=== PATIENT | female | born 1975 | race Caucasian/White ===

== ENCOUNTER 2016-12-15 18:37 | Emergency (ER) | payer BC ==
[~2016-12-15] VITALS: Ht 163.8 cm; Wt 64.1 kg
[~2016-12-15 18:37] MED LIST: BUSPAR10 MG PO; CEFDINIR300 MG PO; CELEXA20 MG PO; COLACE100 MG PO; FIORICET,ESG1 TABLET PO; K-DUR10 MEQ PO; MUCINEX D ER T1 EACH PO; NAPROSYN500 MG PO; NASONEX17 GM BOTH NARES; PREDNISONE20 MG PO; TRAMADOL HCL50 MG PO
[2016-12-15 19:05] LABS: HEMATOCRIT 40.7 % (36.0-46.0); MCH 31.3 PG (29.0-34.0); MCHC 33.9 G/DL (30.0-36.0); MCV 92.3 FL (83-99); MEAN PLAT.VOLUME 9.6 uM^3 (9.5-12.4); PLATELET COUNT 304 K/uL (156-360); RBC DIS.WIDTH-CV 11.6 % (11.8-14.6); RBC DIS.WIDTH-SD 39.6 % (39-53); RED BLOOD COUNT 4.41 M/uL (3.80-5.20); WHITE BLOOD COUNT 5.5 K/uL (4.1-10.2)
[2016-12-15 19:14] LABS: CHLORIDE 105 mEq/L (99-109); POTASSIUM 4.1 mEq/L (3.7-5.4); SODIUM 138 mEq/L (136-147)
[2016-12-15 19:15] LABS: GLUCOSE 84 mg/dL (70-99)
[2016-12-15 19:17] LABS: ANION GAP 10 MEQ/L (2-14)
[2016-12-15 19:19] LABS: GFR ESTIMATE (CALCULATED) > 59 mL/min/
[2016-12-15 19:20] LABS: UREA NITROGEN (BUN) 16 mg/dL (9-23)
[2016-12-15 19:27] LABS: TROP-I INTERPRETATION NEGATIVE; TROPONIN-I < 0.01 ng/mL (0.0-0.30)
[2016-12-15 19:32] LABS: D-DIMER ELISA < 150.00 ng/mLDDU (<230)
[2016-12-15] MEDS ORDERED: OMEPRAZOLE40 M1 PO (20:37)
[2016-12-15] MEDS ORDERED: ATARAX,VISTARIL50 MG PO (20:37)
[2016-12-15 22:14] LABS: TROP-I INTERPRETATION NEGATIVE; TROPONIN-I < 0.01 ng/mL (0.0-0.30)
[2016-12-15 22:53] VITALS: BP 110/73
== END 2016-12-15 22:54 | disposition home or self-care (01) ==
LOC: EME 18:37
PROVIDERS: Physician Assistant
DX: F41.9 Anxiety disorder, unspecified (principal); R07.9 Chest pain, unspecified
CPT/HCPCS: 71020; 80048; 84484; 85027; 85379; 93005; 99281; 99284; Q0177